=== PATIENT | female | born 1985 | race Caucasian/White ===

== ENCOUNTER 2016-11-08 17:57 | Emergency (ER) | payer BC ==
[~2016-11-08] VITALS: Ht 162.6 cm; Wt 68.2 kg
[2016-11-08] MEDS ORDERED: TIZANIDINE HCL4 MG PO (18:29)
[2016-11-08] MEDS ORDERED: PERCOCET 5/31 TABLET PO ×2 (18:30→20:01)
[2016-11-08] MEDS ORDERED: RELAFEN500 M1 PO (18:31)
[2016-11-08] MEDS ORDERED: VALIUM5 MG PO (20:01)
[2016-11-08] MEDS ORDERED: MEDROL DOSEPAK4 MG PO (20:01)
[2016-11-08 20:25] VITALS: BP 159/100
== END 2016-11-08 20:27 | disposition home or self-care (01) ==
LOC: EME 17:57
DX: M54.16 Radiculopathy, lumbar region (principal)
CPT/HCPCS: 72100; 99281; 99283; J7512